=== PATIENT | male | born 1990 | race Caucasian/White ===

== ENCOUNTER 2018-10-28 08:31 | Emergency (ER) | payer MEDICAID, SELFPAY ==
[2018-10-28 08:32] VITALS: BP 135/86; PULSE 79; RESP 16; TEMP 37.1; O2SAT 100
--- NOTE | 2018-10-28 08:40 | ED.GENADUL_ITS ---
Discharge Plan Disposition Patient Disposition: HOME Condition: Good Discharge Details Chief Complaint: DentalOral Clinical Impression: Abscess, dental Primary Care Provider: Vishnu Conteh ED Provider: Miladis Maurice Home Meds and New Rx's Prescriptions: New clindamycin HCl 300 mg capsule 300 mg PO TID Qty: 30 RF: 0 Continued methylphenidate HCl 10 MG tablet 10 mg PO DAILY RF: 0 acetaminophen 500 MG tablet 1,000 mg PO PRN PRNRF: 0 ibuprofen 600 MG tablet 600 mg PO PRN PRNRF: 0 Discharge Instructions Instructions: Dental Abscess (ED) Additional Instructions: Push fluid by mouth. Ice to cheek for swelling. Warm salt water gargles. Motrin or tylenol over the counter. Recheck with dentist promptly. Return for any worsening swelling, pain, difficulty eating or drinking. Referrals: Vishnu Conteh MD [Primary Care Provider] - Medical Decision Making Patient presents for 2 days of dental pain. On exam consistent with early dental abscess in the upper jaw. No obvious fluctuation requiring incision and drainage at this time. Discussed conservative treatments. We will treat appropriately with clindamycin as patient has penicillin allergy. Has tolerated Clindamycin in the past. Prompt dental evaluation encouraged with his dentist. Patient agrees with plan of care. Return precautions discussed. HPI General Date/Time Provider Initiated Documentation: 10/28/18 08:35 . HPI Narrative: Patient presents for complaints of dental abscess. Onset of pain in the last 2 days, increased pain this morning. Patient denies facial swelling. Mild swelling noted on the soft palate of the mouth. Eating and drink without difficulty. No signs of dehydration. No fever, chills or systemic symptoms. No other concerns or complaints at this time. No dental injury or trauma. Widespread dental caries. Related Data Home Medications Medication Instructions Recorded Confirmed acetaminophen 1,000 mg PO PRN PRN 09/15/17 10/28/18 ibuprofen 600 mg PO PRN PRN 09/15/17 10/28/18 methylphenidate HCl 10 mg PO DAILY 09/15/17 10/28/18 clindamycin HCl 300 mg PO TID #30 cap 10/28/18 Previous Rx's Medication Instructions Recorded clindamycin HCl 300 mg PO TID #30 cap 10/28/18 Allergies Allergy/AdvReac Type Severity Reaction Status Date / Time Penicillins Allergy Unknown unknown Unverified 10/28/18 08:35 General Stated Complaint: DentalOral ZAIN: 4 Review of Systems Review of Systems CONSTITUTIONAL: The patient denies fevers, chills. EYES: Denies vision changes, or eye pain. ENT: Denies hearing changes, tinnitus, vertigo, sore throat. CARDIAC: Denies chest pain, SOB. RESPIRATORY: Denies cough, sputum. Denies difficulty breathing. GASTROINTESTINAL: Denies abdominal pain, changes in bowel, vomiting or nausea. NEUROLOGIC: Denies headaches, Denies focal weakness. Denies numbness. INTEGUMENT: Denies rashes. PSYCHIATRIC: Denies behavior changes. Denies anxiety or depression. ENDOCRINOLOGY: Denies fatigue. PSYCHIATRY: Denies depression, agitation or anxiety. All systems reviewed & are unremarkable except as noted in HPI and below PFSH Social History Smoking/Tobacco Use Status: Former Tobacco Use Alcohol Intake: never Drug use: Daily Substance use type: marijuana Do you feel safe at home: Yes Do you feel safe in your relationship?: Yes Exam Narrative Exam Narrative: CONST: Healthy appearing patient, in no acute distress. Well hydrated. Alert and alert. HENMT: Head nomocephalic, normal to inspection. Atraumatic. Hearing grossly normal. External ear canal no erythema or swelling. TM normal bilaterally. Nose normal to inspection. No rhinnorhea. Normal facial exam. Mild soft palate swelling without fluctuation noted. Widespread dental caries noted.. Tounge normal. Normal posterior oropharynx. Uvula midline. No external facial swelling noted. EYES: General normal appearance. Alignment normal. Eyelids normal. Conjunctiva normal. Sclera normal. PERRL. NECK: Normal visual inspection. FROM. Cervical lymphadenopathy. Trachea midline. No Midline tenderness. CHEST: Normal insepection of the chest. RESP: Normal respiratory effort. Speaking full sentences. No cough. No wheezing. No retractions. Clear to auscaltation. Breath sound equal and present bilaterally. CARDIO: No JVD. MUSCULOSKELETAL: Normal Gait. FROM of all extremities. SKIN: Normal. Dry. No rashes. NEURO: Alert and awake. Speech clear. PSYCH: Normal affect. Cooperative. Course Vital Signs Temperature 37.1 C 10/28/18 08:32 Pulse 79 10/28/18 08:32 Respiratory Rate 16 10/28/18 08:32 Blood Pressure 135/86 08/28/19 08:32 Pulse Oximetry 100 10/28/18 08:32 Temperature 37.1 C 10/28/18 08:32 Temperature Source Skin 10/28/18 08:32 Pulse 79 10/28/18 08:32 Respiratory Rate 16 10/28/18 08:32 Respiratory Effort Non-Labored 10/28/18 08:35 Blood Pressure 135/86 10/28/18 08:32 Blood Pressure Position Sitting 10/28/18 08:32 Pulse Oximetry 100 10/28/18 08:32 Oxygen Delivery Method Room Air 10/28/18 08:32 Oxygen Flow Rate 0 10/28/18 08:32
== END 2018-10-28 08:50 | disposition home or self-care (01) ==
LOC: ER 08:58
PROVIDERS: Emergency Provider Physician Assistant; PCP General Practice
DX: R68.84 Jaw pain (principal); K04.7 Periapical abscess without sinus
CPT/HCPCS: 99283

== ENCOUNTER 2020-07-20 11:43 | Emergency (ER) | payer MEDICAID, SELFPAY ==
[2020-07-20] VITALS (14 sets, daily range): BP systolic 124–163; BP diastolic 64–87; PULSE 68–95; RESP 12–24; TEMP 36.8; O2SAT 96–99
--- NOTE | 2020-07-20 11:30 | RT.EKG_ITS ---
APPROVED REPORT Exam: Resting ECG Reason for Exam: chest pain Patient Location: E HR:92 bpm ECG Measurements Heart Rate 92 AXIS MA 172 P 59 QRSd 111 QRS -19 QT 358 T 39 QTc 442 Conclusion Sinus rhythm...normal P axis, V-rate 60- 99 ST elev, probable normal early repol pattern...ST elevation, age<55
--- NOTE | 2020-07-20 11:53 | ED.GENADUL_ITS ---
Discharge Plan Disposition Patient Disposition: HOME Condition: Stable Discharge Details Clinical Impression: Chest pain, pleuritic Primary Care Provider: Damien Stephenson ED Provider: Chan Molina Home Meds and New Rx's Prescriptions: Continued sertraline 100 mg tablet 100 mg PO DAILY Qty: 60 RF: 0 methylphenidate HCl 10 mg tablet 10 mg PO BID MDD 20 mg Qty: 56 RF: 0 buprenorphine-naloxone [Suboxone] 12-3 mg film 1 film BC DAILY RF: 0 acetaminophen 500 MG tablet 1,000 mg PO PRN PRNRF: 0 ibuprofen 600 MG tablet 600 mg PO PRN PRNRF: 0 Discharge Instructions Instructions: Chest Pain (ED) Additional Instructions: Your blood work and cat scan did not show any concerning findings this is likely chest wall pain you can take 1000mg tylenol and 600mg ibuprofen every 6 hours for pain as needed follow up with your primary care provider as soon as possible especially if pain continues if you feel more ill, have severe worsening pain or difficulty breathing return to the emergency department Stand Alone Forms: Work Release Medical Decision Making 30 yo male with hx of adhd, no prior cardiac disease, comes in with chief complaint of right sided anterior chest pain worse with deep breaths. 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 HE denies any falls or trauma, no fevers or cough. Pain does not radiate, no diaphoresis, no n/v. HE has tenderness when I palpate the right lateral chest without crepitus or other palpable or visible deformities. He has no abdomen tenderness. No jvd or leg swelling. He is a former smoker, uses marijuana otherwise no other drug use and denies frequent alcohol use. Heart score is 1, will obtain troponin and given over a day of symptoms if first tr oponin negative will unlikely require delta troponin. His wells score is moderate given PE is just as likely as chest wall pain given the pleuritic chest pain, will obtain CTA. No tearing back pain and normal vascular exam so doubt dissection Patient feels better and labs and imaging unremarkable. Only has pain when I palpated the chest wall so suspect chest wall pain especially with reassuring w ork up. Will d/c home and advised to follow up with his pcp, return precautions given Differential Diagnosis Differential Diagnosis: chest wall pain, PE, nstemi, pericarditis Imaging Data Radiologic Study: Attestation: I personally reviewed and interpreted this imaging study as follows: Imaging: CT Scan Radiologist's impression: CLINICAL HISTORY: ? pleuritic chest pain. ? TECHNIQUE:? Imaging Protocol: CT angiography of the chest was performed using pulmonary embolus protocol.? Multi planar reconstructions were performed. CONTRAST MATERIAL:? Intravenous: Omnipaque 350 Contrast volume: 100 cc COMPARISON:? No exams were available for comparison FINDINGS: CHEST: PULMONARY ARTERIES: There are no intraluminal filling defects to suggest acute pulmonary emboli. LUNGS: There are no infiltrates nor evidence of pulmonary infarction.. There are no pleural effusions.? No significant focal findings in trachea and mainstem bronchi. MEDIASTINUM: There is no hilar nor mediastinal adenopathy. Visualized thyroid unremarkable. CARDIAC: Heart size is upper normal.? There is no pericardial effusion.Caliber of the thoracic aorta is within normal limits.? There is no significant shift of the interventricular septum. PARTIALLY VISUALIZED UPPERMOST ABDOMEN: No obvious findings OSSEOUS: No significant osseous lesions.. IMPRESSION: 1. No evidence of acute pulmonary emboli.? No evidence of pulmonary infarction.No pleural effusions. Lab Data Lab results reviewed: Yes I reviewed the patient's lab results. ECG Data Attestation: I personally reviewed and interpreted this ECG (s) as follows: Prior ECG tracings: not available for review Interpretation: sinus rhythm, rate of 92, pr 172, qtc 442, no acute st t wave ischemic findings HPI General Mode of arrival: ambulatory . Date/Time Provider Initiated Documentation: 07/20/20 11:43 . Limitations to Documentation: no limitations . Information obtained by: patient . History of Present Illness 30 year old M presents to the emergency department with the chief complaint of chest pain, described as moderate, Quality is described as aching, and is localized to the chest. Patient reports no radiation. Patient started experiencing this day(s) (1) and it has been constant. No relieving factors improve symptom(s), Other factors that worsen symptoms (deep breaths) . Patient notes no other symptoms.. Related Data Home Medications Medication Instructions Recorded Confirmed acetaminophen 1,000 mg PO PRN PRN 09/15/17 07/20/20 ibuprofen 600 mg PO PRN PRN 09/15/17 07/20/20 buprenorphine 12 mg-naloxone 3 mg 1 film BC DAILY 02/12/20 05/20/21 sublingual film sertraline 100 mg tablet 100 mg PO DAILY #60 tab 01/28/20 07/20/20 methylphenidate HCl 10 mg tablet 10 mg PO BID #56 tab MDD 20 mg 07/04/20 07/20/20 Previous Rx's Medication Instructions Recorded sertraline 100 mg tablet 100 mg PO DAILY #60 tab 01/28/20 methylphenidate HCl 10 mg tablet 10 mg PO BID #56 tab MDD 20 mg 07/04/20 Allergies Allergy/AdvReac Type Severity Reaction Status Date / Time Penicillins Allergy Unknown unknown Verified 07/20/20 11:55 General ZAIN: 4 Review of Systems All systems reviewed & are unremarkable except as noted in HPI and below Constitutional Constitutional: Denies chills, Denies fever(s) and Denies weakness Cardiovascular Cardiovascular: Denies dyspnea Respiratory Respiratory: Denies cough and Denies dyspnea Gastrointestinal Gastrointestinal: Denies abdominal pain, Denies nausea and Denies vomiting Musculoskeletal Musculoskeletal: Denies joint swelling Neurologic Neurologic: Denies weakness Psychiatric Psychiatric: Denies depression [facility] Medical History (Updated 07/20/20 @ 13:25 by Chan Molina MD) ADHD Former smoker Quit 2017-; 16 pack year history Psychosocial stressors (~01/2019) Family History (System 10/06/19 @ 10:10 by Marva Spicer) Mother No problems noted. Father No problems noted. Brother No problems noted. Brother No problems noted. Brother No problems noted. Sister No problems noted. Other Anxiety Bone cancer Breast cancer Diabetes Family history of cervical cancer Family history of ovarian cancer Heart disease Hypertension Parkinsons disease Stomach cancer Stroke Substance abuse Thyroid cancer Social History (System 10/06/19 @ 10:10 by Marva Spicer) Smoking/Tobacco Use Status: Former Tobacco Use Quit Date: 12/01/17 Tobacco: How many years used: 14 Smoking risk assessment performed?: Yes Alcohol Intake: current Alcohol Intake frequency: 0-2 drinks per day Alcohol type: beer Drug use: Daily Substance use type: marijuana Details: No IV Drug Use Adopted: No Caregiver/Support person: No Foster care: No Household members: spouse and children Housing: apartment Number of Children: 4 Communication Needs: Corrective Lenses Do you need help understanding health information?: Never current occupation: UnEmployed Sexually active: Yes Do you think of yourself as: straight/heterosexual Current gender identity: male What is your relationship status?: Panel score (0-1 are the most socially isolated patients): 1 What type of physical activity do you participate in: walking Frequency: daily Seatbelt use: always Working smoke detector in home: Yes Fire extinguisher in home: Yes Carbon monox detector in home: Yes Do you feel safe at home: Yes Do you feel safe in your relationship?: Yes Exam Const General: no acute distress Orientation: alert HENMT Head: normal to inspection Ears: external ears normal General nose exam: external nose normal Mouth: moist mucous membranes Eyes General: appearance normal, both eyes and all related structures Neck Neck: normal visual inspection Chest Chest: normal inspection of the chest and tenderness Resp Effort & Inspection: normal respiratory effort and able to speak in complete sentences Cardio Rate: regular rate Skin General skin exam: no rashes or lesions noted Neuro General: patient alert and patient oriented x3 Extrem General: normal to inspection Psych Mental Status: mental status grossly normal
[2020-07-20 11:59] LABS: Abs Immature Grans 0.03 10^3/uL (0.0-0.06); Absolute Basophil Count 0.03 10^3/uL (0.0-0.2); Absolute Eosinophil Count 0.05 10^3/uL (0.0-0.7); Absolute Lymphocyte Count 3.06 10^3/uL (1.2-3.4); Absolute Monocyte Count 0.69 10^3/uL (0.1-0.8); Absolute Neutrophil Count 4.13 10^3/uL (1.2-6.7); Basophils % 0.4; Eosinophils % 0.6; HCT 41.2 % (40.0-50.0); HGB 13.9 g/dL (13.5-17.5); Immature Grans % 0.4; Lymphocytes % 38.3; MCH 30.7 pg (27.0-33.0); MCHC 33.7 % (32.0-36.0); MCV 90.9 fL (80-95); MPV 9.6 fL (8.0-11.0); Monocytes % 8.6; Neutrophils % 51.7; Nucleated RBC 0 %; Platelet Count 436 10^3/uL (130-400); RBC 4.53 10^6/uL (4.36-5.78); RDW 11.8 % (11.8-14.1); RDW-SD 39.3 fL; WBC 7.99 10^3/uL (4.4-10.8)
--- NOTE | 2020-07-20 12:00 | DI.CT_ITS ---
Exam(s) CT CHEST PE CTA EXAM: CT CHEST PE CTA CLINICAL HISTORY: pleuritic chest pain. TECHNIQUE: Imaging Protocol: CT angiography of the chest was performed using pulmonary embolus giovanny col. Multi planar reconstructions were performed. CONTRAST MATERIAL: Intravenous: Omnipaque 350 Contrast volume: 100 cc COMPARISON: No exams were available for comparison FINDINGS: CHEST: PULMONARY ARTERIES: There are no intraluminal filling defects to suggest acute pulmonary emboli. LUNGS: There are no infiltrates nor evidence of pulmonary infarction.. There are no pleural effusions . No significant focal findings in trachea and mainstem bronchi. MEDIASTINUM: There is no hilar nor mediastinal adenopathy. Visualized thyroid unremarkable. CARDIAC: Heart size is upper normal. There is no pericardial effusion.Caliber of the thoracic aorta is within normal limits. There is no significant shift of the interventricular septum. PARTIALLY VISUALIZED UPPERMOST ABDOMEN: No obvious findings OSSEOUS: No significant osseous lesions.. IMPRESSION: 1. No evidence of acute pulmonary emboli. No evidence of pulmonary infarction.No pleural effusions. 2. 3. RADIATION DOSE DELIVERED: 388.82mGy.cm Total DLP DATA REPOSITORY: All CT scans at this facility are submitted to the National Radiology Data Registry (NRDR) Dose Index Registry (DIR) with the [employer] (ACR). RADIATION OPTIMIZATION: All CT scans at this facility use at least one of these dose optimization te chniques: automated exposure control; mA and/or kV adjustment per patient size (includes targeted exa ms where dose is matched to clinical indication); or iterative reconstruction.
[2020-07-20] MEDS: Aspirin 81 MG CHEW 324 MG CH (12:08)
[2020-07-20] MEDS: Normal Saline Flush 10 ML SYR IVP (12:08)
[2020-07-20 12:14] LABS: ALT 34 U/L (16-63); AST 23 U/L (15-37); Albumin 4.5 g/dL (3.4-5.0); Alkaline Phosphatase 67 U/L (46-116); Anion Gap 7.8 mmol/L (3-11); BUN 11 mg/dL (7-18); Bilirubin, Direct 0.1 mg/dL (0.0-0.2); Bilirubin, Total 0.3 mg/dL (0.2-1.0); CO2 30.2 mmol/L (21.0-32.0); CREATININE 0.9 mg/dL (0.70-1.30); Calcium 9.3 mg/dL (8.5-10.1); Chloride 102 mmol/L (98-107); Glucose 116 mg/dL (74-106); Lipase 50 U/L (73-393); Magnesium 1.9 mg/dL (1.8-2.4); Potassium 3.3 mmol/L (3.5-5.1); Sodium 140 mmol/L (136-145); Total Protein 8.1 g/dL (6.4-8.2)
[2020-07-20 12:18] LABS: Troponin I < 0.05 ng/mL (<0.06)
[2020-07-20] MEDS: Omnipaque 350 MG/ML 100 ML BTL IJ (12:33)
[2020-07-20] MEDS: Normal Saline - Diluent 50 ML VIAL IV (12:33)
== END 2020-07-20 13:45 | disposition home or self-care (01) ==
PROVIDERS: Emergency Provider Emergency Medicine; PCP Family Medicine
DX: R07.1 Chest pain on breathing (principal)
CPT/HCPCS: 71275; 80053; 83690; 93005; 99285; 82248; 83735; 84484; 85025; 93010; 99283; J3490

== ENCOUNTER 2020-10-09 13:57 | Emergency (ER) | payer MEDICAID, SELFPAY ==
[2020-10-09 13:59] VITALS: BP 148/88; PULSE 101; RESP 16; TEMP 37.1; O2SAT 98
--- NOTE | 2020-10-09 14:15 | W.ED.GENAD ---
Discharge Plan Disposition Patient Disposition: HOME Condition: Stable Discharge Details Clinical Impression: Abdominal pain, recurrent, Nausea & vomiting Primary Care Provider: Damien Stephenson ED Provider: Мария Tidwell Home Meds and New Rx's Prescriptions: Continued methylphenidate HCl 10 mg tablet 10 mg PO BID MDD 20 mg Qty: 56 RF: 0 buprenorphine-naloxone [Suboxone] 12-3 mg film 1 film BC DAILY RF: 0 Discharge Instructions Instructions: Acute Nausea and Vomiting (ED), Abdominal Pain (ED) Additional Instructions: Your labs and exam are reassuring here today. The recurrence of your discomfort does have any concern for possible cyclical vomiting and abdominal discomfort associated with chronic marijuana use. Please stop utilizing marijuana. Please encourage hydration. Please follow-up with primary care in the next 1 to 2 days for reevaluation. If your abdominal pain returns, you may try capsaicin cream to help with symptomatic management, this is available [id number]. If you are unable to stay hydrated, have increased discomfort, find that symptoms are linked with something, have more persistent pain or other new/worsening symptoms please seek care urgently once again Stand Alone Forms: Work Release Referrals: Damien Stephenson DO [Primary Care Provider] - Discharge Data Discharge Date/Time-TO BE ENTERED AT DEPARTURE: 10/09/20 16:10 Medical Decision Making Patient is a pleasant 30-year-old male presenting today with recurrent abdominal discomfort, nausea, vomiting, diarrhea x1 month. Reports that for the past month approximately 3 out of the 7 days during the week the patient has experienced the symptoms. He reports that the discomfort feels like getting punched. Is not currently having any abdominal discomfort. States that he vomited x1 this morning. States that he has 3 bowel movements. Describes mild nonbloody. Denies any fevers or chills. No previous abdominal surgeries. Denies any testicular pain, penile discharge. Denies any back pain. Denies any fevers or chills. Patient reports that he does smoke marijuana daily and has been seen by primary care prior to the increase in symptoms he was concerned that some of his abdominal symptoms were linked to his daily marijuana usage. Patient has not had back pain. On exam on exam, patient appears nontoxic. Lungs are clear. No CVA tenderness. Abdomen is benign with no tenderness elicited. Do not see any evidence to suggest emergent pathology. I am in agreement with primary care concern for repetitive marijuana use leading to his abdominal discomfort and recurrent nausea and vomiting. I did reiterate this to the patient. Given the length of time the symptoms have been ongoing, I do feel that evaluation for electrolyte abnormalities with baseline blood work will be appropriate. Patient does not endorse heartburn of alcohol consumption will obtain a lipase because his maximal pain is on the left side of his abdomen Exam and history is not consistent with appendicitis, cholecystitis or acute surgical pathology. We will hold off on any imaging at this time. Labs reviewed. No leukocytosis, stable H&H. No significant electrolyte abnormalities. Urine within normal limits. Discussed findings with the patient and his family. Exam is not consistent with surgical abdomen. Encouaged hdyration. Advised f/u with PCP. Advised to stop smoking marijuana. All of his quesitons and concerns were addressed, he is in agreement with this plan. HPI General Mode of arrival: ambulatory. Date/Time Provider Initiated Documentation: 10/09/20 14:15. Limitations to Documentation: no limitations. Information obtained by: patient and RN notes reviewed. History of Present Illness 30 year old M presents to the emergency department with the chief complaint of abdominal discomfort, described as moderate, with intensity rated at 4. Quality is described as aching, and is localized to the abdomen. Patient reports no radiation. Patient started experiencing this month(s) and it has been intermittent. No relieving factors improve symptom(s), No exacerbating factors reported . Patient notes no other symptoms.. Patient did receive the following treatments prior to arrival, none Related Data Home Medications Medication Instructions Recorded Confirmed buprenorphine 12 mg-naloxone 3 mg 1 film BC DAILY 04/14/19 10/09/20 sublingual film methylphenidate HCl 10 mg tablet 10 mg PO BID #56 tab MDD 20 mg 08/25/20 10/09/20 Previous Rx's Medication Instructions Recorded methylphenidate HCl 10 mg tablet 10 mg PO BID #56 tab MDD 20 mg 08/25/20 Allergies Allergy/AdvReac Type Severity Reaction Status Date / Time Penicillins Allergy Unknown unknown Verified 10/09/20 14:03 General Stated Complaint: Abd Prob ZAIN: 3 Review of Systems Constitutional Constitutional: Reports as per HPI, Denies chills, Denies fatigue, Denies fever(s) and Denies headache(s) ENT Ears, Nose, Mouth, and Throat: Denies headache(s) Cardiovascular Cardiovascular: Reports as per HPI, Denies chest pain and Denies dyspnea Respiratory Respiratory: Reports as per HPI, Denies cough and Denies dyspnea Gastrointestinal Gastrointestinal: Reports as per HPI Genitourinary Genitourinary: Denies system reviewed and no additional complaints, except as documented (patient denies any change in urinary habits) Musculoskeletal Musculoskeletal: Reports as per HPI and Denies back pain Integumentary/Breasts Skin/Breast: Reports as per HPI and Denies rash Neurologic Neurologic: Reports as per HPI and Denies headache(s) Endocrine Endocrine: Denies fatigue [facility] Medical History ADHD Former smoker Quit 2017-; 16 pack year history Psychosocial stressors (~01/2019) Family History (System 10/06/19 @ 10:10 by Marva Spicer) Mother No problems noted. Father No problems noted. Brother No problems noted. Brother No problems noted. Brother No problems noted. Sister No problems noted. Other Anxiety Bone cancer Breast cancer Diabetes Family history of cervical cancer Family history of ovarian cancer Heart disease Hypertension Parkinsons disease Stomach cancer Stroke Substance abuse Thyroid cancer Social History Smoking/Tobacco Use Status: Former Tobacco Use Quit Date: 12/01/17 Tobacco: How many years used: 14 Smoking risk assessment performed?: Yes Alcohol Intake: current Alcohol Intake frequency: 0-2 drinks per day Alcohol type: beer Drug use: Daily Substance use type: marijuana Details: No IV Drug Use Adopted: No Caregiver/Support person: No Foster care: No Household members: spouse and children Housing: apartment Number of Children: 4 Communication Needs: Corrective Lenses Do you need help understanding health information?: Never current occupation: UnEmployed Sexually active: Yes Do you think of yourself as: straight/heterosexual Current gender identity: male What is your relationship status?: Panel score (0-1 are the most socially isolated patients): 1 What type of physical activity do you participate in: walking Frequency: daily Seatbelt use: always Working smoke detector in home: Yes Fire extinguisher in home: Yes Carbon monox detector in home: Yes Do you feel safe at home: Yes Do you feel safe in your relationship?: Yes Exam Const General: cooperative, healthy appearing, comfortable, no acute distress and well developed Nutritional Appearance: average body habitus and well nourished Orientation: alert and awake [facility] Head: normal to inspection Mouth: moist mucous membranes Resp Effort & Inspection: normal respiratory effort, able to speak in complete sentences and no respiratory distress Auscultation: clear to auscultation bilaterally, no rales, no rhonchi and no wheezes Cardio Rate: regular rate Rhythm: regular rhythm Heart Sounds: S1 normal and S2 normal GI Inspection: normal to inspection Palpation: soft, no hepatosplenomegaly, not firm, no guarding, no hernias, no pulsatile masses, not rigid and nontender Percussion: normal to percussion Auscultation: normal bowel sounds Back/Spine/Pelvis Back: no CVA tenderness Skin General skin exam: no rashes or lesions noted Trauma: no lacerations or abrasions Neuro General: patient alert and patient awake Cognition: normal cognition Speech: speech normal Gait: normal gait Psych Appearance: grossly normal and well kempt Mental Status: mental status grossly normal Speech and Movement: speech and movement normal Course Vital Signs Vital signs: Vital Signs Temperature 37.1 C 10/09/20 13:59 Pulse 101 H 10/09/20 13:59 Respiratory Rate 16 10/09/20 13:59 Blood Pressure 148/88 H 10/09/20 13:59 Pulse Oximetry 98 10/09/20 13:59 Temperature 37.1 C 10/09/20 13:59 Temperature Source Temporal Artery Scan 10/09/20 13:59 Pulse 101 H 10/09/20 13:59 Respiratory Rate 16 10/09/20 13:59 Respiratory Effort Non-Labored 10/09/20 14:02 Blood Pressure 148/88 H 10/09/20 13:59 Blood Pressure Position Sitting 10/09/20 13:59 Pulse Oximetry 98 10/09/20 13:59 Oxygen Delivery Method Room Air 10/09/20 13:59 Oxygen Flow Rate 0 10/09/20 13:59 Pain Level 4 10/09/20 13:59
[2020-10-09 15:27] LABS: ALT 48 U/L (16-63); AST 29 U/L (15-37); Albumin 4.2 g/dL (3.4-5.0); Alkaline Phosphatase 67 U/L (46-116); Anion Gap 3.6 mmol/L (3-11); BUN 8 mg/dL (7-18); Bilirubin, Total 0.2 mg/dL (0.2-1.0); CO2 31.4 mmol/L (21.0-32.0); CREATININE 0.8 mg/dL (0.70-1.30); Calcium 9.4 mg/dL (8.5-10.1); Chloride 105 mmol/L (98-107); Glucose 94 mg/dL (74-106); Lipase 62 U/L (73-393); Potassium 3.9 mmol/L (3.5-5.1); Sodium 140 mmol/L (136-145)
[2020-10-09 15:49] LABS: Abs Immature Grans 0.03 10^3/uL (0.0-0.06); Absolute Basophil Count 0.06 10^3/uL (0.0-0.2); Absolute Eosinophil Count 0.12 10^3/uL (0.0-0.7); Absolute Lymphocyte Count 1.86 10^3/uL (1.2-3.4); Absolute Monocyte Count 0.74 10^3/uL (0.1-0.8); Absolute Neutrophil Count 5.38 10^3/uL (1.2-6.7); Basophils % 0.7; Eosinophils % 1.5; HCT 44.5 % (40.0-50.0); Immature Grans % 0.4; Lymphocytes % 22.7; MCH 30.4 pg (27.0-33.0); MCHC 33.7 % (32.0-36.0); MCV 90.3 fL (80-95); MPV 10.1 fL (8.0-11.0); Neutrophils % 65.7; Nucleated RBC 0 %; Platelet Count 425 10^3/uL (130-400); RBC 4.93 10^6/uL (4.36-5.78); RDW-SD 39.5 fL; WBC 8.19 10^3/uL (4.4-10.8)
[2020-10-09 15:57] LABS: Bilirubin Negative (Negative); Blood Negative (Negative); Clarity Clear (Clear); Glucose Negative (Negative); Ketones Negative (Negative); Leukocyte Esterase Negative (Negative); Nitrite Negative (Negative); Urobilinogen 0.2 EU/dL (Up TO 0.2)
[2020-10-09 16:16] VITALS: BP 122/79; PULSE 62; RESP 17; TEMP 37.1; O2SAT 98
== END 2020-10-09 16:10 | disposition home or self-care (01) ==
PROVIDERS: Emergency Provider Physician Assistant; PCP Family Medicine
DX: R10.9 Unspecified abdominal pain (principal); R11.2 Nausea with vomiting, unspecified
CPT/HCPCS: 36415; 80053; 83690; 99282; 81003; 85025; 99283

== ENCOUNTER 2021-04-04 10:03 | Emergency (ER) | payer MEDICAID, SELFPAY ==
[2021-04-04 10:04] VITALS: BP 140/98; PULSE 89; RESP 14; TEMP 36.7; O2SAT 97
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
--- NOTE | 2021-04-04 10:15 | DI.RAD_ITS ---
Exam(s) XR HAND RT COMPLETE EXAM: XR HAND RT COMPLETE CLINICAL HISTORY: Laceration, R/O FB. TECHNIQUE: 2D digital imaging was performed. COMPARISON: CR RIGHT HAND COMPLETE from 12/15/2014 FINDINGS: BONES: No acute fracture is present. Mild deformity of the 5th metacarpal consistent with an old hea led fracture. No bony destructive lesion is seen. JOINTS: No dislocation present. SOFT TISSUE: Normal. No foreign body. IMPRESSION: No acute abnormality. DATA REPOSITORY: RADIATION DOSE DELIVERED:
--- NOTE | 2021-04-04 10:28 | NUR.NOTE ---
Nursing Note: Pt's son Alfredo picked up by Grandfather Edward Gutierrez. Alfredo stated he felt safe with Grandfather and willing to go. Edward voiced concerns regarding pt's mental state. Will relay to provider.
[2021-04-04] MEDS: Clindamycin 150 MG CAP 450 MG PO (13:17)
[2021-04-04] MEDS: Clindamycin 150 MG CAP, 12 CAPS/BTL 450 MG PO (13:18)
[2021-04-04 13:19] VITALS: BP 142/70; PULSE 90; RESP 16; TEMP 36.6; O2SAT 98
--- NOTE | 2021-04-04 13:41 | PDOC.ERCMACT ---
- If Service Date Differs Date of service: 04/04/21 Time of Service: 13:41 Care Management Activity Note Yossi presents in the ED for a hand laceration. At the request of ED provider, CM coordinates a referral to [facility] to assist Yossi in obtaining an appointment for flexor tendon repair.
--- NOTE | 2021-04-04 19:33 | PDOC.MHCN_ITS ---
Date of service: 04/04/21 Time of Service: 19:33 Mental Health Crisis Note Presenting Issue How did you arrive at the ED and why did you come: Pt arrived via himself after cutting his right hand with a knife per his report doing dishes. Precipitating Factors Pt denied SI and HI he is not showing any signs of delusions at the time of assessment. Disposition BEHAVIOR: Pt is cooperative and engaged but it appears he may not have been forthcoming with information that was shared by the attending and/or the . It is reported that the cuts are not consistent with his injuries and the Pt per the has been experiencing some psychosis that per her report may be brought on due to some constipation as informed by his PCP. If not cleared the PCP intends to start the Pt on some Seroquel. EYE CONTACT: Pt made fair eye contact leaning down often to listen to what was being asked to hear. MOOD: Pt described his mood as down in the dumps sometimes but alright. AFFECT: Pt's affect is unremarkable. APPETITE: Pt reported he has not been eating well in the last week. SLEEP(trouble falling/staying asleep: Pt reported his sleep was improved last night. Plan Pt is not seeking inpatient treatment at this time and is not meeting criteria at thie time. A discussion was had with his that should seh should feel she, her children or the Pt are at imminent risk at any time to call 911 and then [facility]. Pt to be discharged back home at this time and to follow up with his PCP. An in house refferal will be sent for counseling and discharge plans shared with the attending. Signature Clinician's Name/Title: Katrin Odonnell MS, [facility] Emergency Services Clinician, [facility]
== END 2021-04-04 13:46 | disposition home or self-care (01) ==
PROVIDERS: Emergency Provider Registered Nurse Emergency; PCP Family Medicine
DX: S61.216A Laceration without foreign body of right little finger without damage to nail, initial encounter (principal); S61.214A Laceration without foreign body of right ring finger without damage to nail, initial encounter; S61.212A Laceration without foreign body of right middle finger without damage to nail, initial encounter; W25.XXXA Contact with sharp glass, initial encounter; F22 Delusional disorders; R44.0 Auditory hallucinations
CPT/HCPCS: 12001; 90471; 99284; 73130; 99283

== ENCOUNTER 2022-03-27 12:31 | Emergency (ER) | payer MEDICAID, SELFPAY ==
[2022-03-27 12:35] VITALS: BP 134/78; PULSE 89; RESP 18; TEMP 37.6; O2SAT 98
--- NOTE | 2022-03-27 12:41 | W.ED.GENAD ---
Discharge Plan Disposition Patient Disposition: Home Condition: Stable Discharge Details Clinical Impression: Pain, dental Primary Care Provider: Damien Stephenson ED Provider: Chan Molina Home Meds and New Rx's Prescriptions: New clindamycin HCl 150 mg capsule 450 mg PO TID 7 Days Qty: 63 0RF Continued naproxen 500 mg tablet 500 mg PO BID PRN sennosides [senna] 8.6 mg tablet 17.2 mg PO BID PRN (Reason: constipation) Qty: 20 0RF calcium carbonate 500 mg calcium (1,250 mg) tablet,chewable 500 mg PO BID methylphenidate HCl 10 mg tablet 10 mg PO BID MDD 20 Qty: 56 0RF methylphenidate HCl 10 mg tablet 10 mg PO BID MDD 20 mg Qty: 56 0RF methylphenidate HCl 10 mg tablet 10 mg PO BID MDD 20 mg Qty: 56 0RF buprenorphine-naloxone [Suboxone] 12-3 mg film 1 film BC DAILY Discharge Instructions Instructions: Toothache (ED) Additional Instructions: follow up with your dentist as soon as possible if you feel more ill, have trouble swallowing liquids or fevers return to the emergency department Medical Decision Making 32 yo male with hx of adhd, who comes in with left upper dental pain for 2 days that has been improving but then started to have swelling of his gums so came here for an evaluation as he couldn't get in to see his dentist. He denies fevers, chills, dyspnea, difficulty swallowing. He arrives stable speaking clearly in no distress and swallowing normally. He has diffuse severely eroded teeth, has tenderness to percussion to the left anterior molar without visible periapical abscess and midline uvula, no submandibular swelling, no pain over the hyoid or restricted neck movements. Suspect pulpitis, no visible abscess on examand no findings on exam to suggest talha's, peritonsilar abscess, retropharyngeal abscess. Will place on clindamycin and have him f/u with his dentist, return precautions given. Differential Diagnosis Differential Diagnosis: caries, pulpitis, HPI General Mode of arrival: ambulatory. Date/Time Provider Initiated Documentation: 03/27/22 12:38. Limitations to Documentation: no limitations. Information obtained by: patient. History of Present Illness 32 year old M presents to the emergency department with the chief complaint of dental pain, described as moderate, Quality is described as aching, Patient started experiencing this day(s) (2) and it has been constant. No relieving factors improve symptom(s), No exacerbating factors reported . Patient notes no other symptoms.. Patient did receive the following treatments prior to arrival, none Related Data Home Medications Medication Instructions Recorded Confirmed buprenorphine 12 mg-naloxone 3 mg 1 film buccal DAILY 04/14/19 01/15/22 sublingual film (Suboxone) sennosides 8.6 mg tablet (senna) 17.2 mg PO BID PRN constipation 04/03/21 01/15/22 #20 tabs naproxen 500 mg tablet 500 mg PO BID PRN 08/02/21 01/15/22 calcium carbonate 500 mg calcium 500 mg PO BID 01/15/22 01/15/22 (1,250 mg) chewable tablet methylphenidate HCl 10 mg tablet 10 mg PO BID #56 tabs 01/15/22 01/15/22 methylphenidate HCl 10 mg tablet 10 mg PO BID #56 tabs 01/15/22 01/15/22 methylphenidate HCl 10 mg tablet 10 mg PO BID #56 tabs 01/15/22 01/15/22 clindamycin HCl 150 mg capsule 450 mg PO TID 7 days #63 caps 03/27/22 Previous Rx's Medication Instructions Recorded sennosides 8.6 mg tablet (senna) 17.2 mg PO BID PRN constipation 04/03/21 #20 tabs methylphenidate HCl 10 mg tablet 10 mg PO BID #56 tabs 01/15/22 methylphenidate HCl 10 mg tablet 10 mg PO BID #56 tabs 01/15/22 methylphenidate HCl 10 mg tablet 10 mg PO BID #56 tabs 01/15/22 clindamycin HCl 150 mg capsule 450 mg PO TID 7 days #63 caps 03/27/22 Allergies Allergy/AdvReac Type Severity Reaction Status Date / Time Penicillins Allergy Unknown unknown Verified 01/15/22 10:54 General Stated Complaint: DentalOral ZAIN: 4 Review of Systems All systems reviewed & are unremarkable except as noted in HPI and below Constitutional Constitutional: Denies chills, Denies fever(s) and Denies weakness ENT Ears, Nose, Mouth, and Throat: Denies change in voice Cardiovascular Cardiovascular: Denies chest pain and Denies dyspnea Respiratory Respiratory: Denies cough and Denies dyspnea Gastrointestinal Gastrointestinal: Denies abdominal pain, Denies nausea and Denies vomiting Genitourinary Genitourinary: Denies dysuria Musculoskeletal Musculoskeletal: Denies joint swelling Integumentary/Breasts Skin/Breast: Denies rash Neurologic Neurologic: Denies weakness PFSH All Active Problems (Updated 03/27/22 @ 12:51 by Chan Molina MD) Pain, dental (Acute) Opiate dependence (Acute) Laceration of tendon of finger (Acute) [facility] [employer]. Dr. Tripathi Abdominal muscle strain (Acute) Abdominal pain, recurrent (Acute) Nausea & vomiting (Acute) Chest pain, pleuritic (Acute) Former smoker (Chronic) Quit 2017-; 16 pack year history Psychosocial stressors (Acute ~01/2019) ADHD (Acute) Surgical History (Updated 05/01/21 @ 14:33 by Poonam Carreon LPN) S/P tendon repair 04/12/21 R hand at [facility] [place] Family History (System 10/06/19 @ 10:10 by Marva Spicer) Mother No problems noted. Father No problems noted. Brother No problems noted. Brother No problems noted. Brother No problems noted. Sister No problems noted. Other Anxiety Bone cancer Breast cancer Diabetes Family history of cervical cancer Family history of ovarian cancer Heart disease Hypertension Parkinsons disease Stomach cancer Stroke Substance abuse Thyroid cancer Social History Smoking/Tobacco Use Status: Former Tobacco Use Quit Date: 12/01/17 Tobacco: How many years used: 14 Smoking risk assessment performed?: Yes Alcohol Intake: current Alcohol Intake frequency: 0-2 drinks per day Alcohol type: beer Drug use: Current Sobriety Substance use type: marijuana Details: No IV Drug Use Adopted: No Caregiver/Support person: No Foster care: No Household members: spouse and children Housing: apartment Number of Children: 4 Communication Needs: Corrective Lenses Do you need help understanding health information?: Never current occupation: UnEmployed Sexually active: Yes Do you think of yourself as: straight/heterosexual Current gender identity: male What is your relationship status?: Panel score (0-1 are the most socially isolated patients): 1 What type of physical activity do you participate in: walking Frequency: daily Seatbelt use: always Working smoke detector in home: Yes Fire extinguisher in home: Yes Carbon monox detector in home: Yes Do you feel safe at home: Yes Do you feel safe in your relationship?: Yes Exam Const General: no acute distress Orientation: alert HENNH Head: normal to inspection Ears: external ears normal General nose exam: external nose normal Mouth: moist mucous membranes Eyes General: appearance normal, both eyes and all related structures Neck Neck: normal visual inspection Resp Effort & Inspection: normal respiratory effort and able to speak in complete sentences Cardio Rate: regular rate Skin General skin exam: no rashes or lesions noted Neuro General: patient alert and patient oriented x3 Extrem General: normal to inspection Psych Mental Status: mental status grossly normal Course Vital Signs Vital signs: Vital Signs Temperature 37.6 C 03/27/22 12:35 Pulse 89 03/27/22 12:35 Respiratory Rate 18 03/27/22 12:35 Blood Pressure 134/78 03/27/22 12:35 Pulse Oximetry 98 03/27/22 12:35 Temperature 37.6 C 03/27/22 12:35 Temperature Source Tympanic 03/27/22 12:35 Pulse 89 03/27/22 12:35 Respiratory Rate 18 03/27/22 12:35 Respiratory Effort 03/27/22 12:36 Blood Pressure 134/78 03/27/22 12:35 Blood Pressure Position Supine 03/27/22 12:35 Pulse Oximetry 98 03/27/22 12:35 Oxygen Delivery Method Room Air 03/27/22 12:35 Oxygen Flow Rate 0 03/27/22 12:35 Pain Level 4 03/27/22 12:35 PAWSS Have you Been Recently Intoxicated or Drunk Within the Last 30 days?: No Have you Ever Experienced Previous Episodes of Alcohol Withdrawal?: No Have you ever Experienced Withdrawal Seizures?: No Have you ever Experienced Delirium Tremens(DT)s?: No Have you ever undergone Alcohol Rehabilitation Treatment (i.e, inpt ot outpatient treatment programs)?: No Have you ever Experienced Blackouts?: No Have you ever Combined Alcohol with other Downers within the last 90 days?: No Have you ever Combined Alcohol with any other Substance of Abuse during the last 90 days?: No Positive Blood Alcohol level on Presentation? [PCS.BAL]: No Evidence of Increased Autonomic Activity (i.e. HR>120, tremor, sweating, agitation, nausea)?: No Result: 0
== END 2022-03-27 12:58 | disposition home or self-care (01) ==
PROVIDERS: Emergency Provider Emergency Medicine; PCP Family Medicine
DX: K08.89 Other specified disorders of teeth and supporting structures (principal)
CPT/HCPCS: 99283

== ENCOUNTER 2022-07-15 10:44 | Outpatient (CLI) | payer MEDICAID, SELFPAY ==
--- NOTE | 2022-07-15 10:30 | RT.EKG_ITS ---
APPROVED REPORT Exam: Resting ECG Reason for Exam: Medication monitoring Patient Location: O HR:59 bpm ECG Measurements Heart Rate 59 AXIS NC 181 P 44 QRSd 115 QRS -21 QT 428 T 45 QTc 424 Conclusion Sinus rhythm...normal P axis, V-rate 50- 99 Left anterior fascicular block Borderline low voltage, extremity leads...all extremity leads <0.6mV
== END 2022-07-15 10:45 | disposition home or self-care (01) ==
LOC: DI.KIM 10:49
PROVIDERS: PCP Family Medicine; Visit Provider Family Medicine
DX: Z79.899 Other long term (current) drug therapy (principal)
CPT/HCPCS: 93010